=== PATIENT | female | born 1990 | race Caucasian/White ===

== ENCOUNTER → 2017-09-14 | Outpatient (CLI) | payer MEDICAID ==
[~2017-09-14] MED LIST: AMO500 PO; AUG500 PO; BUPR-472 PO; IBU200 PO; MULT1CAP41 PO; NORG1TAB76 PO; OSE75 PO; PRE20 PO; R-TANPT PO; RANI-315 PO; SODI44SP14 NS; VAL500 PO; [UNRECOGNIZED DRUG - CODE] OP
== END ==
LOC: LAB 14:07
PROVIDERS: ATTEND Student in an Organized Health Care Education/Training Program
DX: N64.3 Galactorrhea not associated with childbirth (principal)
CPT/HCPCS: 36415; 84146; 84443; 84702

== ENCOUNTER → 2017-09-16 | Outpatient (CLI) | payer MEDICAID ==
--- NOTE | 2017-09-17 09:07 | RADIOLOGY IMAGING REPORT ---
FACILITY: [facility] PATIENT NAME: MADELYN MOMIN : [id number] MR: [id number] V: [id number] EXAM DATE: [id number] ORDERING PHYSICIAN: ANN BENAVIDES TECHNOLOGIST: Shonda Lorenz RT(R)(CT) PROCEDURE:US RIGHT BREAST COMPLETE COMPARISON:None. INDICATIONS:Right breast nipple discharge FINDINGS: The entire Right breast was imaged including the retroareolar portion of the Right breast revealing no sonographic abnormality. Specifically no evidence of a solid mass or a cyst or dilated duct was demonstrated. DIAGNOSTIC CATEGORY 1--NEGATIVE. RECOMMENDATIONS: CLINICAL EVALUATION. IMPRESSION: BIRADS 1: Negative. No sonographic abnormality of the Right breast is seen. Clinical follow-up recommended for the patient's greenish Right nipple discharge. Dictated by: Dorinda Van M.D. on 09/16/2017 at 15:33 Transcribed by: STORMY on 09/16/2017 at 16:07 Approved by: Dorinda Van M.D. on 09/17/2017 at 9:07 [facility]
== END ==
LOC: US 13:31
PROVIDERS: ATTEND Student in an Organized Health Care Education/Training Program
DX: N64.3 Galactorrhea not associated with childbirth (principal)

== ENCOUNTER → 2017-10-06 | Outpatient (CLI) | payer MEDICAID ==
[~2017-10-06] MED LIST changes: +ETON68IM SQ; +GADOBENATE 529MG/1ML 15ML VIAL IVP ONE; +NS 0.9% 20 ML SDV 40 ML ONE; +SERT-173 PO
--- NOTE | 2017-10-06 13:52 | RADIOLOGY IMAGING REPORT ---
[place] [facility] [place]IENT NAME: Elzbieta Nunes : 1990 MR: [id number] V: [id number] EXAM DATE: ORDERING PHYSICIAN: MAO RAMIREZ TECHNOLOGIST: Location: [facility] Patient: Elzbieta Nunes : 1990 Visit/Account:[id number] Date of Sevice: 10/06/2017 EXAMINATION: MRI pituitary protocol without and with intravenous contrast HISTORY: Nipple discharge. COMPARISON: None available. TECHNIQUE: Multiplanar, multisequence pituitary protocol MRI without and with IV contrast. CONTRAST: 15 mL of IV MultiHance FINDINGS: Pituitary: Pituitary gland: Negative. Cavernous sinuses: Negative. Suprasellar cistern: Negative. Visualized optic nerves / chiasm / tracts: Negative. Rest of brain: Mild mucosal thickening in the left maxillary sinus. Otherwise negative. IMPRESSION: 1. Mild mucosal thickening in the left maxillary sinus. 2. Otherwise normal pituitary protocol MRI without and with IV contrast. Report Dictated By: Kyrie Rosas MD at 10/06/2017 1:38 PM Report E-Signed By: Kyrie Rosas MD at 10/06/2017 1:47 PM WSN:[id number]
== END ==
LOC: MRI 06:57
PROVIDERS: ATTEND Surgery
DX: J32.0 Chronic maxillary sinusitis (principal)
CPT/HCPCS: 70553; A9577; J7050

== ENCOUNTER 2017-12-12 16:26 | Emergency (ER) | payer MEDICAID ==
[~2017-12-12 16:26] MED LIST changes: -GADOBENATE 529MG/1ML 15ML VIAL IVP ONE; -NS 0.9% 20 ML SDV 40 ML ONE
--- NOTE | 2017-12-12 16:28 | ER Report ---
History and Physical Time Seen By MD: 16:27 (PIPPA CATALAN MD) HPI/ROS 27-year-old female with no medical problems presents emergency Department with left upper quadrant and left flank pain worsened by eating for the past 2-3 days. No fever chills. No nausea vomiting. She's had normal bowel movements. Her last menstrual period was in May, because she has Implanon. She has no vaginal bleeding. No dysuria or hematuria. No chest pain or shortness of breath. No trauma and no sore throat. Remainder of the 14 system rev: Yes (PIPPA CATALAN MD) Allergies: Coded Allergies: No Known Drug Allergies (Unverified , 12/12/17) Home Meds Active Scripts Ondansetron (ZOFRAN ODT) 4 Mg Tab.rapdis, 4 MG PO Q6H PRN for NAUSEA/VOMITING, #20 TAB.MALORIE 0 Refills Prov:VIKTOR EUGENE MD 12/12/17 Reported Medications Etonogestrel (NEXPLANON) 68 Mg Implant, 68 MG SQ DIRECTED, IMPLANT 09/23/17 Discontinued Reported Medications Sertraline Hcl (ZOLOFT) 100 Mg Tablet, 1 TAB PO QDAY, TAB 09/23/17 Discontinued Scripts Bupropion Hcl (WELLBUTRIN XL) 150 Mg Tab.er.24h, 150 MG PO QDAY, #30 TAB Prov:ANN BENAVIDES DO 09/14/17 Reviewed Nurses Notes: Yes Old Medical Records Reviewed: Yes (PIPPA CATALAN MD) Smoking Status: Current: Every Day Smoker (PIPPA CATALAN MD) Constitutional Vital Sign - Last 24 Hours 12/12/17 12/12/17 12/12/17 12/12/17 16:31 16:32 16:56 17:00 Temp 99.3 Pulse 98 85 Resp 20 B/P (MAP) 136/66 (89) 124/65 (84) Pulse Ox 93 96 O2 Delivery Room Air 12/12/17 12/12/17 12/12/17 12/12/17 17:26 17:30 17:56 18:00 Pulse 84 76 B/P (MAP) 118/72 (87) 100/64 (76) Pulse Ox 93 92 (VIKTOR EUGENE MD) Physical Exam General Appearance: The patient is alert, has no immediate need for airway protection and no current signs of toxicity. Eyes: Pupils equal and round no injection. Respiratory: Chest is non tender, lungs are clear to auscultation. Cardiac: regular rate and rhythm Gastrointestinal: Abdomen is soft and non tender, no masses, bowel sounds normal. Extremities have full range of motion and are non tender. Skin: No rashes or lesions. DIFFERENTIAL DIAGNOSIS: After history and physical exam differential diagnosis was considered for abdominal pain including but not limited to appendicitis, cholecystitis, gastritis and urinary tract infection, and renal colic (PIPPA CATALAN MD) Medical Decision Making Data Points Result Diagram: 12/12/17 1739 12/12/17 1739 Laboratory Hematology Test 12/12/17 00:00 12/12/17 16:29 12/12/17 17:39 Urine HCG, Qualitative Negative (NEGATIVE) Urine Color Yellow Urine Clarity Clear Urine pH 6.0 pH (4.8-9.5) Urine Specific [place] 1.013 Urine Protein Negative mg/dL (NEGATIVE) Urine Glucose (UA) Negative mg/dL (NEGATIVE) Urine Ketones Negative mg/dL (NEGATIVE) Urine Blood Negative (NEGATIVE) Urine Nitrite Negative (NEGATIVE) Urine Bilirubin Negative (NEGATIVE) Urine Urobilinogen Negative mg/dL (0.2-1.9) Urine Leukocyte Esterase Negative (NEGATIVE) Urine RBC None /HPF (0-2/HPF) Urine WBC 2 /HPF (0-5/HPF) Urine Squamous Epithelial Cells Many /LPF (</=FEW) Urine Bacteria Negative /HPF (NONE-FEW) Urine Mucus None /HPF (NONE-FEW) Red Blood Count 4.96 M/uL (4.17-5.56) Mean Corpuscular Volume 87.7 fL (80.0-96.0) Mean Corpuscular Hemoglobin 30.4 pg (26.0-33.0) Mean Corpuscular Hemoglobin Concent 34.7 g/dL (32.0-36.0) Red Cell Distribution Width 14.3 % (11.5-14.5) Mean Platelet Volume 7.4 fL (7.2-11.1) Neutrophils (%) (Auto) 58.9 % (39.4-72.5) Lymphocytes (%) (Auto) 32.9 % (17.6-49.6) Monocytes (%) (Auto) 5.2 % (4.1-12.4) Eosinophils (%) (Auto) 1.9 % (0.4-6.7) Basophils (%) (Auto) 1.1 % (0.3-1.4) Nucleated RBC Relative Count (auto) 0.1 /100WBC Neutrophils # (Auto) 6.0 K/uL (2.0-7.4) Lymphocytes # (Auto) 3.4 K/uL (1.3-3.6) Monocytes # (Auto) 0.5 K/uL (0.3-1.0) Eosinophils # (Auto) 0.2 K/uL (0.0-0.5) Basophils # (Auto) 0.1 K/uL (0.0-0.1) Nucleated RBC Absolute Count (auto) 0.01 K/uL Sodium Level 140 mmol/L (137-145) Potassium Level 3.5 mmol/L (3.5-5.0) Chloride Level 105 mmol/L (98-107) Carbon Dioxide Level 24 mmol/L (22-31) Blood Urea Nitrogen 8 mg/dl (7-18) Creatinine 0.70 mg/dl (0.52-1.04) Glomerular Filtration Rate Calc > 60.0 Random Glucose 94 mg/dl (75-110) Calcium Level 9.4 mg/dl (8.4-10.2) Total Bilirubin 0.3 mg/dl (0.2-1.3) Aspartate Amino Transf (AST/SGOT) 13 U/L (0-35) Alanine Aminotransferase (ALT/SGPT) 22 U/L (0-56) Alkaline Phosphatase 49 U/L (0-126) Total Protein 6.7 g/dl (6.3-8.2) Albumin 4.0 g/dl (3.5-5.0) Lipase 62 U/L (23-300) Chemistry Test 12/12/17 00:00 12/12/17 16:29 12/12/17 17:39 Urine HCG, Qualitative Negative (NEGATIVE) Urine Color Yellow Urine Clarity Clear Urine pH 6.0 pH (4.8-9.5) Urine Specific [place] 1.013 Urine Protein Negative mg/dL (NEGATIVE) Urine Glucose (UA) Negative mg/dL (NEGATIVE) Urine Ketones Negative mg/dL (NEGATIVE) Urine Blood Negative (NEGATIVE) Urine Nitrite Negative (NEGATIVE) Urine Bilirubin Negative (NEGATIVE) Urine Urobilinogen Negative mg/dL (0.2-1.9) Urine Leukocyte Esterase Negative (NEGATIVE) Urine RBC None /HPF (0-2/HPF) Urine WBC 2 /HPF (0-5/HPF) Urine Squamous Epithelial Cells Many /LPF (</=FEW) Urine Bacteria Negative /HPF (NONE-FEW) Urine Mucus None /HPF (NONE-FEW) White Blood Count 10.2 k/uL (4.5-11.0) Red Blood Count 4.96 M/uL (4.17-5.56) Hemoglobin 15.1 g/dL (12.0-16.0) Hematocrit 43.5 % (34.0-47.0) Mean Corpuscular Volume 87.7 fL (80.0-96.0) Mean Corpuscular Hemoglobin 30.4 pg (26.0-33.0) Mean Corpuscular Hemoglobin Concent 34.7 g/dL (32.0-36.0) Red Cell Distribution Width 14.3 % (11.5-14.5) Platelet Count 284 K/uL (150-450) Mean Platelet Volume 7.4 fL (7.2-11.1) Neutrophils (%) (Auto) 58.9 % (39.4-72.5) Lymphocytes (%) (Auto) 32.9 % (17.6-49.6) Monocytes (%) (Auto) 5.2 % (4.1-12.4) Eosinophils (%) (Auto) 1.9 % (0.4-6.7) Basophils (%) (Auto) 1.1 % (0.3-1.4) Nucleated RBC Relative Count (auto) 0.1 /100WBC Neutrophils # (Auto) 6.0 K/uL (2.0-7.4) Lymphocytes # (Auto) 3.4 K/uL (1.3-3.6) Monocytes # (Auto) 0.5 K/uL (0.3-1.0) Eosinophils # (Auto) 0.2 K/uL (0.0-0.5) Basophils # (Auto) 0.1 K/uL (0.0-0.1) Nucleated RBC Absolute Count (auto) 0.01 K/uL Glomerular Filtration Rate Calc > 60.0 Calcium Level 9.4 mg/dl (8.4-10.2) Total Bilirubin 0.3 mg/dl (0.2-1.3) Aspartate Amino Transf (AST/SGOT) 13 U/L (0-35) Alanine Aminotransferase (ALT/SGPT) 22 U/L (0-56) Alkaline Phosphatase 49 U/L (0-126) Total Protein 6.7 g/dl (6.3-8.2) Albumin 4.0 g/dl (3.5-5.0) Lipase 62 U/L (23-300) Urinalysis Test 12/12/17 00:00 12/12/17 16:29 Urine HCG, Qualitative Negative (NEGATIVE) Urine Color Yellow Urine Clarity Clear Urine pH 6.0 pH (4.8-9.5) Urine Specific [place] 1.013 Urine Protein Negative mg/dL (NEGATIVE) Urine Glucose (UA) Negative mg/dL (NEGATIVE) Urine Ketones Negative mg/dL (NEGATIVE) Urine Blood Negative (NEGATIVE) Urine Nitrite Negative (NEGATIVE) Urine Bilirubin Negative (NEGATIVE) Urine Urobilinogen Negative mg/dL (0.2-1.9) Urine Leukocyte Esterase Negative (NEGATIVE) Urine RBC None /HPF (0-2/HPF) Urine WBC 2 /HPF (0-5/HPF) Urine Squamous Epithelial Cells Many /LPF (</=FEW) Urine Bacteria Negative /HPF (NONE-FEW) Urine Mucus None /HPF (NONE-FEW) (VIKTOR EUGENE MD) ED Course/Re-evaluation Decision to Disposition Date: Dec 12, 2017 Decision to Disposition Time: 18:28 (PIPPA CATALAN MD) ED Course Reviewed this patient with Dr. Catalan at shift change. Patient has left upper quadrant abdominal pain with flank pain. CBC and CMP unremarkable. Urinalysis with some white blood cells, but also many squamous epithelial cells, suggesting skin contamination. Culture ordered. CT scan of abdomen and pelvis was negative for acute problems. Incidental demonstration of gallstones. Discussed all of this with the patient. Recommended follow-up with primary care and consider specialty follow-up for possible upper endoscopy. Start Zantac or Pepcid in the meantime. Decision to Disposition Date: Dec 12, 2017 Decision to Disposition Time: 20:19 (VIKTOR EUGENE MD) Depart Departure Latest Vital Signs Vital Signs Date Time Temp Pulse Resp B/P (MAP) Pulse Ox O2 Delivery O2 Flow Rate FiO2 12/12/17 18:00 100/64 (76) 12/12/17 17:56 76 92 12/12/17 16:31 99.3 20 Room Air (VIKTOR EUGENE MD) Impression: Primary Impression: Abdominal pain Condition: Improved Disposition: HOME OR SELF-CARE New Scripts Ondansetron (ZOFRAN ODT) 4 Mg Tab.rapdis 4 MG PO Q6H PRN for NAUSEA/VOMITING, #20 TAB.MALORIE 0 Refills Prov: VIKTOR EUGENE MD 12/12/17 Patient Instructions: Acute Abdominal Pain (ED) Additional Instructions: We did not find any acute problems on your evaluation tonight. Pain could be from a viral infection of the intestines which should resolve. Alternatively, this could be a problem such as gastritis or ulcer disease. Follow-up with your regular doctor. Consider starting Zantac (Ranitidine) 150mg twice a day or Pepcid (Famotidine) 20mg twice a day. Urine culture is being done and results available in 48-72 hours. Use Tylenol as needed for pain. You can take Zofran 4mg, one every 6 hours as needed for nausea. Problem Qualifiers Primary Impression: Abdominal pain Abdominal location: left upper quadrant Qualified Codes: R10.12 - Left upper quadrant pain PIPPA CATALAN MD Dec 12, 2017 16:28 VIKTOR EUGENE MD Dec 12, 2017 20:26
[2017-12-12] MEDS ORDERED: ONDANSETRON 4 MG/2 ML VIAL IVP ONE (17:25)
[2017-12-12] MEDS ORDERED: NS(*) 0.9% 1000 ML BAG 1,000 ML IV ONE (17:25)
[2017-12-12 17:54] LABS: PLATELET COUNT, AUTOMATED 284 K/uL (150-450)
[2017-12-12 18:00] VITALS: BP 100/64
[2017-12-12] MEDS ORDERED: IOPAMIDOL 76% 75 ML INFUS BTL 75 ML ONE (19:10)
--- NOTE | 2017-12-12 19:50 | RADIOLOGY IMAGING REPORT ---
FACILITY: [facility] - [place] PATIENT NAME: Elzbieta Nunes : 1990 MR: [id number] V: [id number] EXAM DATE: ORDERING PHYSICIAN: VIKTOR EUGENE TECHNOLOGIST: Location: [facility] - [place] Patient: Elzbieta Nunes : 1990 Visit/Account:[id number] Date of Sevice: 12/12/2017 EXAMINATION: CT abdomen and pelvis with contrast COMPARISON: None. HISTORY: Left upper quadrant and left flank pain. Nausea. PROCEDURE: Multiplanar contrast enhanced CT of the abdomen and pelvis with 75 mL intravenous Isovue 3 70. One of the following dose optimization techniques was utilized in the performance of this exam: A utomated exposure control; adjustment of the mA and/or kV according to the patient's size; or use of an iterative reconstruction technique. Specific details can be referenced in the facility's radiolo gy CT exam operational policy. FINDINGS: Visualized thorax: Negative. Liver: Negative. Gallbladder and biliary system: Cholelithiasis. No pericholecystic inflammation. No bile duct dilatio n. No radiopaque intraductal stone. Spleen: Negative. Pancreas: Negative. Adrenal glands: Negative. Kidneys and bladder: No renal mass or evidence of an obstructive uropathy. Urinary bladder is unrema rkable. Vessels: Within normal limits. Bowel and mesentery: Stomach, small bowel, and appendix are unremarkable. Small amount of stool in th e colon. No bowel or mesenteric inflammation. Pelvic organs: Negative. Lymph nodes: No adenopathy. Free air/free fluid: None. Abdominal wall and osseous structures: Abdominal wall is intact. No acute osseous abnormality. IMPRESSION: 1. No findings of acute disease in the abdomen or pelvis. 2. Cholelithiasis. Report Dictated By: Choco Reyes MD at 12/12/2017 7:42 PM Report E-Signed By: Choco Reyes MD at 12/12/2017 7:46 PM WSN:[id number]
[2017-12-12] MEDS ORDERED: ONDANSETRON 4 MG ODT TH SL ONE (20:20)
[2017-12-12] MEDS ORDERED: ONDA4TAB PO (20:24)
[2017-12-15] MEDS ORDERED: OMEP40CA48 PO (10:57)
[2017-12-15] MEDS ORDERED: BUTA1CAP6 PO (10:57)
== END 2017-12-12 20:37 | disposition home or self-care (01) ==
LOC: ER 16:38
DX: R10.12 Left upper quadrant pain (principal)
CPT/HCPCS: 74177; 81001; 81025; 83690; 85025; 87088; 96361; 96374; 99284; J2405; J7030; Q9967; S0119; 82040; 82247; 82310; 82374; 82435; 82565; 82947; 84075; 84132; 84155; 84295; 84450; 84460; 84520

== ENCOUNTER → 2017-12-30 | Day surgery (SDC) | payer MEDICAID ==
[~2017-12-30] VITALS: Ht 165.1 cm; Wt 116.1 kg
[~2017-12-30] MED LIST changes: +ACETAMINOPHEN 500 MG TAB PO ONE; +AMPICILLIN/SULBACT (*) 3 GM VL 3 GM in NS(*) 0.9% 100 ML BAG 100 ML IVPB ONE; +BUTA1CAP6 PO; +DEXAMETHASONE SOD PHOS 10MG/ML ONE; +DOCU-416 PO; +FAMOTIDINE 20 MG TAB PO ONE; +HYDROmorphone HCL 2 MG/ML SDV ONE; +INDOCYANINE GREEN 25 MG VIAL IVP ONE; +KETOROLAC 30 MG/ML VIAL ONE; +LIDOCAINE/SOD BICARB 8.4% SYR ID ONE; +MIDAZOLAM 2 MG/2 ML VIAL IVP PRN; +NORMOSOL R SOLN(*) 1000 ML BAG 1,000 ML IV PRN; +OMEP40CA48 PO; +ONDA4TAB PO; +ONDANSETRON 4 MG/2 ML VIAL ONE; +OXYC-854 PO; +PREGABALIN 150 MG CAPSULE PO ONE; +PROMETHAZINE 25 MG/ML 1 ML AMP ONE; +PROPOFOL EMUL(*) 10MG/ML 20 ML 20 ML ONE; +ROCURONIUM BROM 10 MG/ML 10 ML ONE; +ROPIVACAINE 0.5% 20 ML VIAL ONE; +SUGAMMADEX SOD 500 MG/5 ML SDV ONE; +fentaNYL CITR 100 MCG/2 ML AMP ONE
[2017-12-30 10:57] VITALS: BP 119/71
--- NOTE | 2017-12-30 13:08 | Short(Outpt) Discharge Summary ---
Discharge Summary Reason for Hosp/Final Diag: (1) Symptomatic cholelithiasis Status: Chronic Hospital Course & Plan: Robotic cholecystectomy completed without problems. Departure Discharge to: Home, Self Care Discharge Instructions Home Meds Active Scripts Docusate Sodium (COLACE) 100 Mg Capsule, 1 CAP PO BID, #30 CAP 0 Refills TAKE WITH A FULL GLASS OF WATER Prov:MAO RAMIREZ MD 12/30/17 Oxycodone Hcl/Acet 5/325 Mg (ENDOCET 5-325 TABLET) 1 Each Tablet, 1-2 TAB PO Q4H PRN for PAIN, #30 TAB 0 Refills Prov:MAO RAMIREZ MD 12/30/17 Butalb/Acetaminophen/Caffeine (FIORICET 50-300-40) 1 Each Capsule, 1-2 EACH PO Q4H PRN for HEADACHE, #30 CAPSULE Prov:ANN BENAVIDES DO 12/15/17 Omeprazole (OMEPRAZOLE) 40 Mg Capsule.dr, 40 MG PO QDAY for 30 Days, #30 CAP 1 Refill Prov:ANN BENAVIDES DO 12/15/17 Ondansetron (ZOFRAN ODT) 4 Mg Tab.rapdis, 4 MG PO Q6H PRN for NAUSEA/VOMITING, #20 TAB.MALORIE 0 Refills Prov:VIKTOR EUGENE MD 12/12/17 Reported Medications Etonogestrel (NEXPLANON) 68 Mg Implant, 68 MG SQ DIRECTED, IMPLANT 09/23/17 Follow up Referrals: General Surgery - 01/14/18 @ Surgery, General with MAO RAMIREZ MD You have a follow up appointment scheduled with Dr. Ramirez on 01/14/18, at 10:45am. Diet: Regular Activity: As Tolerated Special Instructions: You may remove the white surgical dressings on 01/01/18, then you may shower. After showering, leave the incisions open to air but leave the steristrips in place until they fall off on their own. Do not immerse the incisions for 2 weeks. MAO RAMIREZ MD Dec 30, 2017 13:08
--- NOTE | 2017-12-30 13:14 | Post Operative Progress Note ---
Post Operative Progress Note Date: Dec 30, 2017 Time: 13:08 Surgeon: Sophia Dictation number: [id number] Anesthesia: GETA by Dr. Amaya Pre-Op Diagnosis: Symptomatic cholelithiasis Post-Op Diagnosis: GARY Findings: None Procedure(s): Robotic cholecystectomy Specimen Removed:(May be N/A): GB and contents Complications: None Fluids: See anesthesia record Estimated Blood Loss: Minimal Date OP Note Dictated: Dec 30, 2017 Time OP Note Dictated: 13:09 MAO RAMIREZ MD Dec 30, 2017 13:14
--- NOTE | 2017-12-30 14:23 | OPERATIVE REPORT 1 ---
EVENT DATE: December 30, 2017 SURGEON: Rob Cortes MD ANESTHESIOLOGIST: Ernie Amaya MD ANESTHESIA: General endotracheal. PREOPERATIVE DIAGNOSIS Symptomatic cholelithiasis. POSTOPERATIVE DIAGNOSIS Symptomatic cholelithiasis. PROCEDURE PERFORMED Robotic cholecystectomy. COMPLICATIONS None. CONDITION Stable. ESTIMATED BLOOD LOSS Minimal. INDICATIONS This is a 27-year-old female who presented to my office with postprandial right upper quadrant abdominal pain and a gallbladder ultrasound had revealed gallstones. She was requesting to have her gallbladder removed. DESCRIPTION OF PROCEDURE The patient was brought to the operating room and placed supine on the operating table. General endotracheal anesthesia was administered and her abdomen was prepped and draped in sterile fashion. A time out was completed and I injected the infraumbilical skin with 0.5% Ropivacaine plain. I made a curvilinear smily- faced type incision in the infraumbilical rim and dissected through the dermis and subcutaneous fat and identified the midline fascia. I made a vertical incision in the midline fascia, grasped the fascial edges with Ermelinda clamps and then penetrated the peritoneum with my finger while I retracted the abdominal wall towards the ceiling. I then placed two interrupted 0 Vicryl sutures transversely through the facial defect and inserted a 12 mm robotic port in through this wound securing it with sutures. I insufflated the abdomen with a pressure of 15 mmHg and inserted the robotic camera into the patient's abdomen. 360-degree gross inspection of the abdominal cavity did not reveal any obvious evidence of pathology or entry related injuries. Next, under direct visualization, I placed an 8 mm port in the right mid abdomen and two 8 mm ports on the left side of the abdomen, one in mid abdomen and one in the left anterior axillary subcostal skin. I then had the patient placed in reverse Trendelenburg and planed towards her left. I removed the viscera from the right upper and then had the robot brought in, docked, and targeted the robot, inserted the instruments and then scrubbed out and went to the console. I grasped the fundus of the gallbladder and tracked towards the patient right shoulder and there were some loose, wispy adhesions between the duodenum and the body and the infundibulum of the gallbladder that I easily took down with hook electrocautery using traction, counter traction. Once the infundibulum was cleaned off, I divided the peritoneum over the infundibulum at both the medial and lateral aspects of the gallbladder and stripped this down as well as the subperitoneal contents. I was able to easily identify the cystic duct and artery. I did use Firefly to confirm the cystic duct as well as identify the common bile duct and confirm I was away from the common bile duct. After I cleaned the artery and duct off circumferentially, I clipped the duct with 3 clips distally and 1 clip at the infundibulum/cystic duct junction and then the artery was clipped proximally and distally with a single clip and both of these were divided between clips. I then retracted the infundibulum towards the anterior abdominal wall and divided the posterior attachments of the gallbladder, from the gallbladder fossa and then placed the gallbladder in a surgical specimen retrieval bag and removed it from the abdomen through the umbilical port site. I irrigated and dried the right upper quadrant, inspected the gallbladder fossa as well as the cystic duct and artery stumps for any bleeding or bile leaks and there was none. The clips were all in good position and secured the cystic duct and artery and it looked great. I removed all of the irrigation fluid from the right upper quadrant. I removed the robotic ports, undocked the robot, desufflated the abdomen and removed all of the ports and then closed the midline fascia with a [id number] 0 Vicryl suture. I then closed the skin in each port site with 4-0 Monocryl subcuticular sutures. The skin was cleaned, dried, and Steri-strips were applied, followed by sterile surgical dressings. The patient was awakened and extubated in the operating room, transferred to the recovery room in stable condition having tolerated the procedure without any apparent problems. EARLENE
[2017-12-30 14:25] VITALS: BP 130/81
[2017-12-30 14:31] VITALS: BP 132/80
[2017-12-30 14:33] VITALS: BP 129/82
== END ==
LOC: OR 01:51
PROVIDERS: ATTEND Surgery
DX: K80.20 Calculus of gallbladder without cholecystitis without obstruction (principal)
CPT/HCPCS: 47562; 81025; 88304; J1100; J1170; J1885; J2405; J2550; J2704; J2795; J3010; S2900

== ENCOUNTER 2018-10-24 00:33 | Emergency (ER) | payer MEDICAID ==
[~2018-10-24 00:33] MED LIST changes: -ACETAMINOPHEN 500 MG TAB PO ONE; -AMPICILLIN/SULBACT (*) 3 GM VL 3 GM in NS(*) 0.9% 100 ML BAG 100 ML IVPB ONE; -DEXAMETHASONE SOD PHOS 10MG/ML ONE; -FAMOTIDINE 20 MG TAB PO ONE; +FLU60SYR36 IM; -HYDROmorphone HCL 2 MG/ML SDV ONE; -INDOCYANINE GREEN 25 MG VIAL IVP ONE; -KETOROLAC 30 MG/ML VIAL ONE; -LIDOCAINE/SOD BICARB 8.4% SYR ID ONE; -MIDAZOLAM 2 MG/2 ML VIAL IVP PRN; -NORMOSOL R SOLN(*) 1000 ML BAG 1,000 ML IV PRN; -ONDANSETRON 4 MG/2 ML VIAL ONE; -PREGABALIN 150 MG CAPSULE PO ONE; -PROMETHAZINE 25 MG/ML 1 ML AMP ONE; -PROPOFOL EMUL(*) 10MG/ML 20 ML 20 ML ONE; -ROCURONIUM BROM 10 MG/ML 10 ML ONE; -ROPIVACAINE 0.5% 20 ML VIAL ONE; -SUGAMMADEX SOD 500 MG/5 ML SDV ONE; +[UNRECOGNIZED DRUG - REMARK]; -fentaNYL CITR 100 MCG/2 ML AMP ONE
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
[2018-10-24 02:00] VITALS: BP 143/139
[2018-10-24] MEDS ORDERED: METH-543 PO (02:18)
[2018-10-24] MEDS ORDERED: IBUPROFEN 800 MG TAB PO ONE (02:25)
[2018-10-24] MEDS ORDERED: METHOCARBAMOL 500 MG TAB PO ONE (02:25)
--- NOTE | 2018-10-24 02:28 | RADIOLOGY IMAGING REPORT ---
FACILITY: [facility] - [place], [place] PATIENT NAME: Elzbieta Nunes : 1990 MR: [id number] V: [id number] EXAM DATE: ORDERING PHYSICIAN: EDIN COREA TECHNOLOGIST: Location: [facility] - [place] Patient: Elzbieta Nunes : 1990 Visit/Account:[id number] Date of Sevice: 10/24/2018 Examination: Left upper extremity venous duplex sonogram. Comparisons: None. HISTORY: Left arm swelling for one day. FINDINGS: The venous structures of the left upper extremity from the left forearm through the left internal jug ular vein demonstrate normal flow and compressibility. There is normal phasicity noted. Surrounding soft tissues are unremarkable. IMPRESSION: 1. No evidence of venous thrombosis involving the left upper extremity. Report Dictated By: Cory Michel MD at 10/24/2018 2:20 AM Report E-Signed By: Cory Michel MD at 10/24/2018 2:21 AM WSN:[id number]
[2018-10-25] MEDS ORDERED: DICL100G39 TOP (22:22)
== END 2018-10-24 02:33 | disposition home or self-care (01) ==
LOC: ER 00:46
DX: M79.602 Pain in left arm (principal); M62.838 Other muscle spasm
CPT/HCPCS: 99284

== ENCOUNTER 2018-10-25 21:45 | Emergency (ER) | payer MEDICAID ==
[~2018-10-25 21:45] MED LIST changes: +METH-543 PO
[2018-10-25 22:00] VITALS: BP 122/67
[2018-10-25] MEDS ORDERED: DICL100G39 TOP (22:22)
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
== END 2018-10-25 22:30 | disposition home or self-care (01) ==
LOC: ER 22:13
DX: M62.838 Other muscle spasm (principal)
CPT/HCPCS: 99281